=== PATIENT | male | born 1980 | race Caucasian/White ===

== ENCOUNTER 2017-03-24 13:37 | Emergency (ER) | payer BC, OTHER ==
[2017-03-24] MEDS ORDERED: Ketorolac INJ* 60 MG/2 ML VIAL IM ONE (17:22)
[2017-03-24 17:48] VITALS: BP 124/86
--- NOTE | 2017-03-24 17:48 | ED ---
Neck Pain - HPI Summary HPI Summary: Patient presents to the ED with acute on chronic neck pain for several years. He has with him an MRI from 5 years ago. He has buldge between C5-C6 today pain is worse. Meloxican at home 7.5mg. He does not want additional imaging or opioids, but states the meloxicam is not improving his symptoms. He is requesting a stronger NSAID. Denies numbness, tingling, color or temperature changes. Denies BAEZ, visual changes or medication use other than meloxicam. He denies a recent injury, but states this has been chronic. He is otherwise healthy. - History of Current Complaint Chief Complaint: EDNeckComplaint Stated Complaint: NECK PAIN Time Seen by Provider: 03/24/17 16:05 Hx Obtained From: Patient Timing: Constant Onset/Duration: Gradual Onset Severity Initially: Moderate Severity Currently: Moderate Pain Intensity: 4 Pain Scale Used: 0-10 Numeric Character: Aching Aggravating Factors: Movement Alleviating Factors: Position, Heat Associated Signs & Symptoms: Positive: Negative Related History: Previous Neck Injury - Risk Factors Meningitis Risk Factors: Negative Risk Factors For Cervical Spine Injury: Posterior Midline Cervical Spine Tenderness - Allergies/Home Medications Allergies/Adverse Reactions: Allergies Allergy/AdvReac Type Severity Reaction Status Date / Time No Known Allergies Allergy Verified 03/24/17 13:56 PMH/Surg Hx/FS Hx/Imm Hx Previously Healthy: Yes - Immunization History Hx Pertussis Vaccination: No Immunizations Up to Date: Unable to Obtain/Confirm Infectious Disease History: No Infectious Disease History: Denies: Traveled Outside the [place] in Last 30 Days - Family History Known Family History: Positive: Hypertension, Other - lymphoma - Social History Occupation: Employed Full-time Lives: With Family Alcohol Use: Weekly Hx Substance Use: Yes Substance Use Type: Reports: Marijuana Substance Use Comment - Amount & Last Used: occasionally Hx Tobacco Use: Yes Smoking Status (MU): Light Every Day Tobacco Smoker Review of Systems Constitutional: Negative Negative: Fever, Chills, Fatigue ENT: Negative Cardiovascular: Negative Negative: Abdominal Pain, Vomiting, Diarrhea Genitourinary: Negative Positive: no symptoms reported, see HPI Positive: Myalgia Skin: Negative Negative: Headache, Weakness, Paresthesia, Numbness, Syncope Psychological: Normal All Other Systems Reviewed And Are Negative: Yes Physical Exam Triage Information Reviewed: Yes Vital Signs On Initial Exam: Initial Vitals Temp Pulse Resp BP Pulse Ox 98.5 F 106 20 138/83 97 03/24/17 13:56 03/24/17 13:56 03/24/17 13:56 03/24/17 13:56 03/24/17 13:56 Vital Signs Reviewed: Yes Appearance: Positive: Well-Appearing, Well-Nourished Skin: Positive: Warm, Skin Color Reflects Adequate Perfusion Neck: Positive: Tenderness @ - tenderness thoughout the neck - most notably on right side. slight tenderness to the posterior cervical spine Respiratory/Lung Sounds: Positive: Clear to Auscultation, Breath Sounds Present Cardiovascular: Positive: Normal, RRR. Negative: Leg Edema Left, Leg Edema Right Musculoskeletal: Positive: Pain @ - right sided neck pain Neurological: Positive: Speech Normal Psychiatric: Positive: Affect/Mood Appropriate AVPU Assessment: Alert Diagnostics - Vital Signs Vital Signs Temp Pulse Resp BP Pulse Ox 03/24/17 13:56 98.5 F 106 20 138/83 97 - Laboratory Lab Statement: Any lab studies that have been ordered have been reviewed, and results considered in the medical decision making process. Neck Course/Dx - Course Course Of Treatment: Patient is given toradol 30mg IM via request. He is given prescription. This pain is acute on chornic and I have advised he seek the aid of a neurosurgeon. He agrees and I have given him Dr. Castro referral. He is OK with discharge at this time. - Diagnoses Differential Dx/HQI/PQRI: Positive: Cervical Fracture, Dystonia Provider Diagnoses: Chronic neck pain Discharge - Discharge Plan Condition: Stable Disposition: HOME Prescriptions: Ketorolac TAB * [Toradol TAB *] 10 mg PO Q6H #16 tab Patient Education Materials: Neck Pain (ED) Referrals: Pablo Caceres MD [Primary Care Provider] - Bay Rosa MD [Medical Doctor] - Additional Instructions: Please follow up with Dr. Castro You will need to call for an appt For pain well controlled with ibuprofen, use this instead If pain is not well controlled - you may take the Toradol up to 4 times daily moist heat to the area
== END 2017-03-24 17:48 | disposition home or self-care (01) ==
LOC: ED 13:37
DX: G89.29 Other chronic pain (principal); M54.2 Cervicalgia
CPT/HCPCS: 96372; 99282; J1885